=== PATIENT | male | born 1995 | race Caucasian/White ===

== ENCOUNTER 2017-10-15 12:48 | Emergency (ER) | payer SELFPAY ==
[~2017-10-15] VITALS: Ht 177.8 cm; Wt 70.0 kg
[~2017-10-15 12:48] MED LIST: HYDR-3533 PO; IBUP800T23 PO; METH750T2 PO
[2017-10-15 13:00] VITALS: BP 148/68; PULSE 68; RESP 16; TEMP 98.9; O2SAT 100
[2017-10-15] MEDS ORDERED: SODIUM CHLOR 0.9% 1000 ML INJ 1,000 ML IV ONE (13:22)
[2017-10-15] MEDS ORDERED: ACETAMINOPHEN 325 MG TAB PO ONE (13:30)
--- NOTE | 2017-10-15 13:36 | PD ---
HPI Chief Complaint: Fever Time Seen by Provider: 13:26 Travel History International Travel<30 days: No Contact w/Intl Traveler<30days: No Traveled to known affect area: No History of Present Illness HPI This is a 22-year-old male with no significant medical history who presents to the emergency department for evaluation of multiple different complaints. Patient states he had a pilonidal cyst that ruptured on its own. It completely drained and has resolved. He denies any problems associated with that. He states within days after that within the last 4 days, he is developed a clustered erythematous rash on his bilateral elbows that is now partially excoriated. He states it is sometimes itchy and sometimes painful. He states he is also developed a large lump in his right axilla and another bump near his distal right bicep. He states he has had intermittent fever with this T-max 101 last evening. He denies any nausea vomiting. No cough or chest congestion. He cannot recall being bitten by any other insects. He denies any other injuries. He denies any autoimmune disease. He denies any gluten sensitivities. He has no other symptoms at this time. [facility] Past Medical History Medical History: Denies Significant Hx Medical other: Yes (pylonidal cyst) Immunizations Current: Yes Social History Alcohol Use: No Tobacco Use: No Substance Use: Yes (marijuana ) Allergies-Medications (Allergen,Severity, Reaction): Coded Allergies: No Known Allergies (Verified Adverse Reaction, Unknown, 10/15/17) Reported Meds & Prescriptions Reported Meds & Active Scripts Active Doxycycline Hyclate 100 Mg Cap 100 Mg PO BID Aczone Topical (Dapsone Topical) 5% Gel 1 Applic TOPICAL BID Review of Systems Except as stated in HPI: all other systems reviewed are Neg Physical Exam Narrative GENERAL: Well-nourished male patient, ambulatory and in no acute distress SKIN: Focused skin assessment warm/dry. Clustered erythematous papular rash on the bilateral posterior elbows. There is mild excoriation. No vesicle or pustule formation. No drainage. HEAD: Atraumatic. Normocephalic. EYES: Pupils equal and round. No scleral icterus. No injection or drainage. ENT: No nasal bleeding or discharge. Mucous membranes pink and moist. Without erythema or edema NECK: Trachea midline. No JVD. CARDIOVASCULAR: Regular rate and rhythm. No murmur appreciated. RESPIRATORY: No accessory muscle use. Clear to auscultation. Breath sounds equal bilaterally. GASTROINTESTINAL: Abdomen soft, non-tender, nondistended. Hepatic and splenic margins not palpable. MUSCULOSKELETAL: No obvious deformities. No clubbing. No cyanosis. No edema. There is a palpable lymph node within the right axilla. It is mobile. It is nontender. NEUROLOGICAL: Awake and alert. No obvious cranial nerve deficits. Motor grossly within normal limits. Normal speech. PSYCHIATRIC: Appropriate mood and affect; insight and judgment normal. Data Data Last Documented VS Vital Signs Date Time Temp Pulse Resp B/P (MAP) Pulse Ox O2 Delivery O2 Flow Rate FiO2 10/15/17 17:16 98.3 75 16 99 10/15/17 13:39 Room Air 10/15/17 13:00 148/68 (94) Orders Orders Sepsis Workup Initiated (10/15/17 ) Complete Blood Count With Diff (10/15/17 13:22) Comprehensive Metabolic Panel (10/15/17 13:22) Lactic Acid Sepsis Protocol (10/15/17 13:22) Urinalysis - C+S If Indicated (10/15/17 13:22) Blood Culture (10/15/17 13:22) Blood Glucose (10/15/17 13:22) Ecg Monitoring (10/15/17 13:22) Iv Access Insert/Monitor (10/15/17 13:22) Oximetry (10/15/17 13:22) Oxygen Administration (10/15/17 13:22) Acetaminophen (Tylenol) (10/15/17 13:30) Sodium Chlor 0.9% 1000 Ml Inj (Ns 1000 M (10/15/17 13:22) Ed Discharge Order (10/15/17 17:07) Labs Laboratory Tests Test 10/15/17 13:40 10/15/17 16:05 White Blood Count 8.2 TH/MM3 Red Blood Count 4.70 MIL/MM3 Hemoglobin 15.1 GM/DL Hematocrit 43.0 % Mean Corpuscular Volume 91.5 FL Mean Corpuscular Hemoglobin 32.1 PG Mean Corpuscular Hemoglobin Concent 35.1 % Red Cell Distribution Width 12.6 % Platelet Count 183 TH/MM3 Mean Platelet Volume 7.5 FL Neutrophils (%) (Auto) 68.2 % Lymphocytes (%) (Auto) 20.2 % Monocytes (%) (Auto) 9.6 % Eosinophils (%) (Auto) 1.4 % Basophils (%) (Auto) 0.6 % Neutrophils # (Auto) 5.6 TH/MM3 Lymphocytes # (Auto) 1.7 TH/MM3 Monocytes # (Auto) 0.8 TH/MM3 Eosinophils # (Auto) 0.1 TH/MM3 Basophils # (Auto) 0.0 TH/MM3 CBC Comment DIFF FINAL Differential Comment Blood Urea Nitrogen 10 MG/DL Creatinine 1.12 MG/DL Random Glucose 87 MG/DL Total Protein 7.6 GM/DL Albumin 4.0 GM/DL Calcium Level 8.9 MG/DL Alkaline Phosphatase 62 U/L Aspartate Amino Transf (AST/SGOT) 18 U/L Alanine Aminotransferase (ALT/SGPT) 29 U/L Total Bilirubin 0.4 MG/DL Sodium Level 140 MEQ/L Potassium Level 3.7 MEQ/L Chloride Level 107 MEQ/L Carbon Dioxide Level 26.6 MEQ/L Anion Gap 6 MEQ/L Estimat Glomerular Filtration Rate 82 ML/MIN Lactic Acid Level 1.0 mmol/L Urine Color YELLOW Urine Turbidity CLEAR Urine pH 6.5 Urine Specific [place] 1.018 Urine Protein NEG mg/dL Urine Glucose (UA) NEG mg/dL Urine Ketones NEG mg/dL Urine Occult Blood NEG Urine Nitrite NEG Urine Bilirubin NEG Urine Urobilinogen LESS THAN 2.0 MG/DL Urine Leukocyte Esterase NEG Urine WBC LESS THAN 1 /hpf Microscopic Urinalysis Comment CATH-CULT NOT IND MDM Medical Decision Making Medical Screen Exam Complete: Yes Emergency Medical Condition: Yes Medical Record Reviewed: Yes Differential Diagnosis Viral syndrome versus cat scratch disease versus dermatitis herpetiformis versus autoimmune response versus other immunocompromise state Narrative Course 22-year-old male presents emergency department for evaluation. Patient appears well. His vital signs are stable. Workup is initiated by my attending physician. Laboratory Tests Test 10/15/17 13:40 10/15/17 16:05 White Blood Count 8.2 TH/MM3 Red Blood Count 4.70 MIL/MM3 Hemoglobin 15.1 GM/DL Hematocrit 43.0 % Mean Corpuscular Volume 91.5 FL Mean Corpuscular Hemoglobin 32.1 PG Mean Corpuscular Hemoglobin Concent 35.1 % Red Cell Distribution Width 12.6 % Platelet Count 183 TH/MM3 Mean Platelet Volume 7.5 FL Neutrophils (%) (Auto) 68.2 % Lymphocytes (%) (Auto) 20.2 % Monocytes (%) (Auto) 9.6 % Eosinophils (%) (Auto) 1.4 % Basophils (%) (Auto) 0.6 % Neutrophils # (Auto) 5.6 TH/MM3 Lymphocytes # (Auto) 1.7 TH/MM3 Monocytes # (Auto) 0.8 TH/MM3 Eosinophils # (Auto) 0.1 TH/MM3 Basophils # (Auto) 0.0 TH/MM3 CBC Comment DIFF FINAL Differential Comment Blood Urea Nitrogen 10 MG/DL Creatinine 1.12 MG/DL Random Glucose 87 MG/DL Total Protein 7.6 GM/DL Albumin 4.0 GM/DL Calcium Level 8.9 MG/DL Alkaline Phosphatase 62 U/L Aspartate Amino Transf (AST/SGOT) 18 U/L Alanine Aminotransferase (ALT/SGPT) 29 U/L Total Bilirubin 0.4 MG/DL Sodium Level 140 MEQ/L Potassium Level 3.7 MEQ/L Chloride Level 107 MEQ/L Carbon Dioxide Level 26.6 MEQ/L Anion Gap 6 MEQ/L Estimat Glomerular Filtration Rate 82 ML/MIN Lactic Acid Level 1.0 mmol/L Urine Color YELLOW Urine Turbidity CLEAR Urine pH 6.5 Urine Specific [place] 1.018 Urine Protein NEG mg/dL Urine Glucose (UA) NEG mg/dL Urine Ketones NEG mg/dL Urine Occult Blood NEG Urine Nitrite NEG Urine Bilirubin NEG Urine Urobilinogen LESS THAN 2.0 MG/DL Urine Leukocyte Esterase NEG Urine WBC LESS THAN 1 /hpf Microscopic Urinalysis Comment CATH-CULT NOT IND Lab work is without acute concern. I discussed the patient with my attending physician. Patient will be discharged home on doxycycline. He is encouraged to follow-up with a primary care provider for further evaluation and workup. He agrees to return immediately with acute worsening of symptoms. Diagnosis Primary Impression: Axillary adenopathy Additional Impressions: Acute maculopapular rash Fever and chills Referrals: Primary Care Physician Patient Instructions: General Instructions, Lymphadenopathy (ED) Additional Instructions: Follow up with a primary care provider Return immediately with acute worsening of symptoms Med/Other Pt SpecificInfo: Prescription(s) given Scripts Doxycycline Hyclate (Doxycycline Hyclate) 100 Mg Cap 100 MG PO BID for Infection, #20 CAP 0 Refills Prov: Heidi Gipson 10/15/17 Dapsone Topical (Aczone Topical) 5% Gel 1 APPLIC TOPICAL BID for Acne, #60 GM 0 Refills Prov: Heidi Gipson 10/15/17 Disposition: 01 DISCHARGE HOME Condition: Stable Heidi Gipson October 15, 2017 13:36
[2017-10-15 13:39] VITALS: RESP 16; O2SAT 97
[2017-10-15 14:07] LABS: AUTOMATED NEUTROPHIL # 5.6 TH/MM3 (1.8-7.7); BASOPHIL % 0.6 % (0.0-2.0); EOSINOPHIL # 0.1 TH/MM3 (0-0.4); EOSINOPHIL % 1.4 % (0.0-4.0); HEMOGLOBIN 15.1 GM/DL (13.0-17.0); LYMPH % 20.2 % (9.0-44.0); LYMPHOCYTE # 1.7 TH/MM3 (1.0-4.8); MEAN CELL VOLUME 91.5 FL (80.0-100.0); MEAN CORPUSCULAR HEMOGLOBIN 32.1 PG (27.0-34.0); MEAN CORPUSCULAR HGB CONC 35.1 % (32.0-36.0); MEAN PLATELET VOLUME 7.5 FL (7.0-11.0); MONO % 9.6 % (0.0-8.0); MONOCYTE # 0.8 TH/MM3 (0-0.9); NEUT % 68.2 % (16.0-70.0); PLATELET COUNT 183 TH/MM3 (150-450); RED CELL DISTRIBUTION WIDTH 12.6 % (11.6-17.2); WHITE BLOOD COUNT 8.2 TH/MM3 (4.0-11.0)
[2017-10-15 14:17] LABS: AST (GOT) 18 U/L (15-37); BICARBONATE 26.6 MEQ/L (21.0-32.0); BLOOD UREA NITROGEN 10 MG/DL (7-18); CALCIUM 8.9 MG/DL (8.5-10.1); CHLORIDE 107 MEQ/L (98-107); CREATININE 1.12 MG/DL (0.60-1.30); GLOMERULAR FILTRATION RATE 82 ML/MIN (>89); GLUCOSE,RANDOM 87 MG/DL (74-106); SODIUM (NA) 140 MEQ/L (136-145)
[2017-10-15 14:18] LABS: ALT (GPT) 29 U/L (12-78)
[2017-10-15 14:20] LABS: ALKALINE PHOSPHATASE 62 U/L (45-117); TOTAL BILIRUBIN ADULT 0.4 MG/DL (0.2-1.0); TOTAL PROTEIN 7.6 GM/DL (6.4-8.2)
[2017-10-15 16:39] LABS: BILIRUBIN, URINE NEG (NEG); BLOOD, URINE NEG (NEG); GLUCOSE,URINE NEG (NEG); KETONE, URINE NEG (NEG); NITRITE,URINE NEG (NEG); PH, URINE 6.5 (5.0-8.5); URINE COLOR YELLOW (YELLW/STRAW); URINE LEUKOCYTE ESTERASE NEG (NEG)
[2017-10-15] MEDS ORDERED: ACZO5GEL2 TOPICAL (17:09)
[2017-10-15] MEDS ORDERED: DOXY100C PO (17:09)
[2017-10-15 17:16] VITALS: TEMP 98.3
--- NOTE | 2017-10-15 18:15 | PD ---
Physical Exam Date Seen by Provider: October 15, 2017 Time Seen by Provider: 16:00 Narrative I, Dr. Fregoso, have reviewed the advance practice practitioner's documentation and am in agreement, met with the patient face to face, made the diagnosis, and the medical decision making was done by me. *My assessment and Findings: Patient seen and evaluated with nurse practitioner , please see notes practice or notes for further details. He is here because he has been running fevers and has noticed some mildly tender adenopathy in the right axilla and arm area, also states that he had a sacral area abscess that has self drained several days ago. On exam, there are no signs of sacral abscess currently now. There is some tender 2 cm adenopathy in the right axilla. He is afebrile here in the ER. Vital signs are stable. Lab work did not show significant signs of leukocytosis. At this point, considering the adenopathy and recent fevers, my plan would be to treat with antibiotics for possible supportive adenitis. Laboratory Tests Test 10/15/17 13:40 10/15/17 16:05 Monocytes (%) (Auto) 9.6 % (0.0-8.0) Estimat Glomerular Filtration Rate 82 ML/MIN (>89) Data Data Last Documented VS Vital Signs Date Time Temp Pulse Resp B/P (MAP) Pulse Ox O2 Delivery O2 Flow Rate FiO2 10/15/17 17:16 98.3 75 16 99 10/15/17 13:39 Room Air 10/15/17 13:00 148/68 (94) Orders Orders Sepsis Workup Initiated (10/15/17 ) Complete Blood Count With Diff (10/15/17 13:22) Comprehensive Metabolic Panel (10/15/17 13:22) Lactic Acid Sepsis Protocol (10/15/17 13:22) Urinalysis - C+S If Indicated (10/15/17 13:22) Blood Culture (10/15/17 13:22) Blood Glucose (10/15/17 13:22) Ecg Monitoring (10/15/17 13:22) Iv Access Insert/Monitor (10/15/17 13:22) Oximetry (10/15/17 13:22) Oxygen Administration (10/15/17 13:22) Acetaminophen (Tylenol) (10/15/17 13:30) Sodium Chlor 0.9% 1000 Ml Inj (Ns 1000 M (10/15/17 13:22) Ed Discharge Order (10/15/17 17:07) Labs Laboratory Tests Test 10/15/17 13:40 10/15/17 16:05 White Blood Count 8.2 TH/MM3 Red Blood Count 4.70 MIL/MM3 Hemoglobin 15.1 GM/DL Hematocrit 43.0 % Mean Corpuscular Volume 91.5 FL Mean Corpuscular Hemoglobin 32.1 PG Mean Corpuscular Hemoglobin Concent 35.1 % Red Cell Distribution Width 12.6 % Platelet Count 183 TH/MM3 Mean Platelet Volume 7.5 FL Neutrophils (%) (Auto) 68.2 % Lymphocytes (%) (Auto) 20.2 % Monocytes (%) (Auto) 9.6 % Eosinophils (%) (Auto) 1.4 % Basophils (%) (Auto) 0.6 % Neutrophils # (Auto) 5.6 TH/MM3 Lymphocytes # (Auto) 1.7 TH/MM3 Monocytes # (Auto) 0.8 TH/MM3 Eosinophils # (Auto) 0.1 TH/MM3 Basophils # (Auto) 0.0 TH/MM3 CBC Comment DIFF FINAL Differential Comment Blood Urea Nitrogen 10 MG/DL Creatinine 1.12 MG/DL Random Glucose 87 MG/DL Total Protein 7.6 GM/DL Albumin 4.0 GM/DL Calcium Level 8.9 MG/DL Alkaline Phosphatase 62 U/L Aspartate Amino Transf (AST/SGOT) 18 U/L Alanine Aminotransferase (ALT/SGPT) 29 U/L Total Bilirubin 0.4 MG/DL Sodium Level 140 MEQ/L Potassium Level 3.7 MEQ/L Chloride Level 107 MEQ/L Carbon Dioxide Level 26.6 MEQ/L Anion Gap 6 MEQ/L Estimat Glomerular Filtration Rate 82 ML/MIN Lactic Acid Level 1.0 mmol/L Urine Color YELLOW Urine Turbidity CLEAR Urine pH 6.5 Urine Specific [place] 1.018 Urine Protein NEG mg/dL Urine Glucose (UA) NEG mg/dL Urine Ketones NEG mg/dL Urine Occult Blood NEG Urine Nitrite NEG Urine Bilirubin NEG Urine Urobilinogen LESS THAN 2.0 MG/DL Urine Leukocyte Esterase NEG Urine WBC LESS THAN 1 /hpf Microscopic Urinalysis Comment CATH-CULT NOT IND MDM Medical Record Reviewed: Yes Supervised Visit with MARLON: Yes Diagnosis Primary Impression: Axillary adenopathy Additional Impressions: Fever and chills Acute maculopapular rash Referrals: Primary Care Physician Patient Instructions: General Instructions, Lymphadenopathy (ED) Departure Forms: Tests/Procedures Additional Instruction: Follow up with a primary care provider Return immediately with acute worsening of symptoms Scripts Doxycycline Hyclate (Doxycycline Hyclate) 100 Mg Cap 100 MG PO BID for Infection, #20 CAP 0 Refills Prov: Heidi Gipson 10/15/17 Dapsone Topical (Aczone Topical) 5% Gel 1 APPLIC TOPICAL BID for Acne, #60 GM 0 Refills Prov: Heidi Gipson 10/15/17 Disposition: 01 DISCHARGE HOME Condition: Stable John Fregoso MD October 15, 2017 18:15
== END 2017-10-15 17:18 | disposition home or self-care (01) ==
LOC: NEPE 12:48
DX: R59.0 Localized enlarged lymph nodes (principal); R21 Rash and other nonspecific skin eruption; L05.91 Pilonidal cyst without abscess; R50.9 Fever, unspecified
CPT/HCPCS: 80053; 81001; 83605; 85025; 87040; 99283; J7030